=== PATIENT | female | born 1995 ===

== ENCOUNTER 2021-06-04 14:20 | Inpatient (IN) | payer OTHER ==
[2021-06-04] MEDS ORDERED: ELECTROLYTE-148 SOLN 1,000 ML IV SCH (16:00)
[2021-06-04 16:46] VITALS: BMI 27.8
[2021-06-04 18:00] LABS: HEMOGLOBIN 12.4 GM/dL (10.7-15.3); MONO % 7.8 % (3.8-10.2); RBC 4.06 M/mm3 (3.60-5.2)
[2021-06-04] MEDS ORDERED: DEXTROSE 5%-LACTATED RINGERS 1,000 ML IV SCH (18:00)
[2021-06-04 18:06] LABS: BASO % 0.4 % (0-2.0); EOS % 0.8 % (0-4.5); HEMATOCRIT 36.4 % (32.4-45.2); LYMPH % 10.6 % (8-40); MCH 30.5 pg (25.7-33.7); MEAN CELL VOLUME 89.6 fl (80-96); MEAN PLT VOLUME 9.4 fl (7.5-11.1); NEUT % 80.4 % (42.8-82.8); PLATELET COUNT 209 10^3/uL (134-434); WHITE BLOOD COUNT 11.1 K/mm3 (4.0-10.0)
[2021-06-04 18:07] LABS: INR 0.98 (0.83-1.09); PROTHROMBIN TIME (PATIENT) 12.1 SEC (9.7-13.0)
[2021-06-04 18:10] LABS: ACTIVATED PTT 27.5 SECONDS (25.2-36.5)
[2021-06-04 18:23] LABS: CALCIUM 8.7 mg/dL (8.5-10.1)
[2021-06-04 18:24] LABS: BLOOD UREA NITROGEN 7.5 mg/dL (7-18)
[2021-06-04 18:27] LABS: CREATININE 0.4 mg/dL (0.55-1.3)
[2021-06-04] MEDS ORDERED: PCA PUMP NR ONE (19:11)
[2021-06-04] MEDS ORDERED: FENTANYL/BUPIVACAINE/NS/PF - PCEA - 50 ML DISP.SYRIN EP ONE (19:11)
[2021-06-04] MEDS ORDERED: NALOXONE HCL 0.4 MG/ML VIAL IVPUSH PRN (19:29)
[2021-06-04] MEDS ORDERED: BUPIVACAINE HCL/PF 0.25% (2.5MG/ML) 10 ML VIAL ONE (19:31)
[2021-06-04] MEDS: FENTANYL/BUPIVACAINE/NS/PF - PCEA - 50 ML DISP.SYRIN EP SCH (19:50)
[2021-06-04] MEDS ORDERED: LIDOCAINE HCL 1% PRESERVATIVE FREE - 30ML VIAL ONE (20:03)
[2021-06-04] MEDS ORDERED: OXYTOCIN 20 UNITS in 0.9% NS 20 UNIT/1,000 ML INFUS.BAG IV ONE (20:03)
[2021-06-04] MEDS ORDERED: OXYTOCIN 30 UNITS in 0.9% NS 30 UNIT/500 ML INFUS.BAG IVPB ONE (20:52)
[2021-06-04] MEDS: OXYTOCIN 30 UNITS in 0.9% NS 30 UNIT/500 ML INFUS.BAG IVPB SCH (20:55)
[2021-06-04] MEDS ORDERED: ACETAMINOPHEN 325 MG TABLET (FP) PO PRN (22:48)
[2021-06-04] MEDS ORDERED: BENZOCAINE 20% 57 GM BOTTLE TP PRN (22:48)
[2021-06-04] MEDS ORDERED: WITCH HAZEL 50% (TUCKS) 40 PAD/JAR PAD TP PRN (22:48)
[2021-06-04] MEDS ORDERED: METHYLERGONOVINE MALEATE 0.2 MG/1 ML AMP IM PRN (22:48)
[2021-06-04] MEDS ORDERED: IBUPROFEN 600 MG TABLET (FP) PO PRN (22:48)
[2021-06-04] MEDS ORDERED: BISACODYL 10 MG SUPP.RECT RC PRN (22:48)
[2021-06-04] MEDS ORDERED: BENZOCAINE 28 GM HEMORRHOIDAL OINTMENT TP PRN (22:48)
[2021-06-04] MEDS ORDERED: OXYTOCIN 20 UNITS in 0.9% NS 20 UNIT/1,000 ML INFUS.BAG IV SCH (23:00)
[2021-06-05] MEDS: FENTANYL/BUPIVACAINE/NS/PF - PCEA - 50 ML DISP.SYRIN EP SCH ×2 (01:37→21:31)
[2021-06-05] MEDS: OXYTOCIN 30 UNITS in 0.9% NS 30 UNIT/500 ML INFUS.BAG IVPB SCH (01:37)
[2021-06-05] MEDS: LEVOTHYROXINE NA 50 MCG TABLET (FP) PO SCH (08:18)
[2021-06-05] MEDS: ACETAMINOPHEN 325 MG TABLET (FP) PO PRN ×2 (09:13→23:19)
[2021-06-05] MEDS: IBUPROFEN 600 MG TABLET (FP) PO PRN ×2 (09:15→23:18)
[2021-06-05 09:32] LABS: BASO % 0.2 % (0-2.0); EOS % 0.1 % (0-4.5); LYMPH % 11.6 % (8-40); MCHC 34.6 g/dl (32.0-36.0); MEAN CELL VOLUME 89.6 fl (80-96); MEAN PLT VOLUME 9.9 fl (7.5-11.1); MONO % 9.1 % (3.8-10.2); PLATELET COUNT 186 10^3/uL (134-434); RBC 3.23 M/mm3 (3.60-5.2); RDW 13.3 % (11.6-15.6); WHITE BLOOD COUNT 12.3 K/mm3 (4.0-10.0)
[2021-06-05] MEDS ORDERED: SENNOSIDES/DOCUSATE COMBO (SENNA PLUS) TABLET (UD) PO PRN (22:00)
[2021-06-06] MEDS: LEVOTHYROXINE NA 50 MCG TABLET (FP) PO SCH (07:11)
[2021-06-06] MEDS: ACETAMINOPHEN 325 MG TABLET (FP) PO PRN (08:33)
[2021-06-06 08:53] VITALS: BP 100/59; PULSE 75; TEMP 98.3
[2021-06-06] MEDS: IBUPROFEN 600 MG TABLET (FP) PO PRN (12:38)
== END 2021-06-06 12:45 | disposition home or self-care (01) | DRG 560 ==
LOC: JDEL 14:20 → JLDR 14:24 → J3W 06-05 00:33
PROVIDERS: ADMIT Obstetrics & Gynecology; ATTEND Obstetrics & Gynecology
PROC: 10E0XZZ Delivery of Products of Conception, External Approach (ICD-10-PCS; principal; 2021-06-04)
DX: O48.0 Post-term pregnancy (principal); Z3A.40 40 weeks gestation of pregnancy; Z37.0 Single live birth
CPT/HCPCS: 36415; 59409; 80048; 85025; 85610; 85730; 86780; 86850; 86900; 86901; C9803; U0003; U0005